=== PATIENT | female | born 1985 | race African-American/Black ===

== ENCOUNTER 2018-05-12 10:49 | Emergency (ER) | payer OTHER ==
[2018-05-12 11:02] VITALS: BP 105/57; PULSE 72; TEMP 98.9; BMI 26.2
--- NOTE | 2018-05-12 11:11 | PDOC ---
History of Present Illness - General Chief Complaint: Cold Symptoms Stated Complaint: COUGHING Time Seen by Provider: 05/12/18 10:55 History Source: Patient Exam Limitations: No Limitations - History of Present Illness Initial Comments: 05/12/18 11:02 Mom states has acute onset of body aches, chills, chest congestion and feels feverish. Daughter and son both diagnosed with influenza a past 2 days. Timing/Duration: reports: just prior to arrival, getting worse Severity: reports: mild, moderate Associated Symptoms: reports: cough, fever/chills, nasal congestion, sore throat Past History - Travel Traveled outside of the country in the last 30 days: No Close contact w/someone who was outside of country & ill: No - Past Medical History Allergies/Adverse Reactions: Allergies Allergy/AdvReac Type Severity Reaction Status Date / Time No Known Allergies Allergy Verified 05/12/18 10:54 Home Medications: Ambulatory Orders Amoxicillin 500mg Capsule - 1 cap PO ASDIR 08/26/13 Oxycodone HCl/Acetaminophen [Percocet 5-325 mg Tablet -] 1 - 2 tab PO Q4H PRN # 20 tablet 08/26/13 Oseltamivir Phosphate [Tamiflu -] 75 mg PO BID #10 capsule 05/12/18 COPD: No - Suicide/Smoking/Psychosocial Hx Smoking History: Never smoked Hx Alcohol Use: No Drug/Substance Use Hx: No Review of Systems - Review of Systems Able to Perform ROS?: Yes Is the patient limited Persian proficient: Yes Constitutional: Yes: Symptoms Reported, See HPI, Chills, Fever, Loss of Appetite , Malaise HEENTM: Yes: Symptoms Reported, See HPI, Nose Congestion, Difficulty Swallowing Respiratory: Yes: Symptoms reported, See HPI, Cough Musculoskeletal: Yes: Symptoms Reported, See HPI, Muscle Pain All Other Systems: Reviewed and Negative *Physical Exam - Vital Signs Last Vital Signs Temp Pulse Resp BP Pulse Ox 98.9 F 72 18 105/57 L 99 05/12/18 10:54 05/12/18 10:54 05/12/18 10:54 05/12/18 10:54 05/12/18 10:54 - Physical Exam Comments: 05/12/18 11:16 GENERAL: [ The pateint is awake, alert, and appropriately interactive.] EYES: [The pupils are equal, round, and reactive to light, with clear, conjunctiva.but glassy] NOSE: [The nose with clear drainage EARS: [The ear canals and tympanic membranes are congested but landmarks easily visualed ] THROAT: [The oropharynx is clear with erythema, no exudates. The mucous membranes are moist.] NECK: [The neck is supple with mildly tender adenopathy, no menigemous] CHEST: [The lungs are coarse but clear without crackles, or wheezes.] HEART: [Heart is regular rhythm, with normal S1 and S2, no murmurs.] ABDOMEN: [The abdomen is soft and nontender with normal bowel sounds. There is no organomegaly and no mass. There is no guarding or rebound.] EXTREMITIES: [Extremities are normal.] NEURO: [Behavior is normal for age.cranky but easily, Tone is normal.] SKIN: [Skin is unremarkable without rash or swelling. There is no bruising, and there are no other signs of injury.] General Appearance: Yes: Nourished, Appropriately Dressed, Apparent Distress HEENT: positive: TMs Normal Moderate Sedation - Procedure Monitoring Vital Signs: Procedure Monitoring Vital Signs Temperature 98.9 F 05/12/18 10:54 Pulse Rate 72 05/12/18 10:54 Respiratory Rate 18 05/12/18 10:54 Blood Pressure 105/57 L 05/12/18 10:54 O2 Sat by Pulse Oximetry (%) 99 05/12/18 10:54 Progress Note - Progress Note Progress Note: iNFLUENA *DC/Admit/Observation/Transfer Diagnosis at time of Disposition: Influenzal acute upper respiratory infection - Discharge Dispostion Disposition: HOME Condition at time of disposition: Stable Decision to Admit order: No - Referrals - Patient Instructions Printed Discharge Instructions: DI for Viral Upper Respiratory Infection -- Adult Additional Instructions: Rest, drink lots of fluids: Teas, water, soups, Pedialyte Saltwater gargles Steamy showers/seem to face break up mucus Old-fashioned treatments help! Avoid contact with others until fevers and cough resolved as this is very contagious Lots of handwashing and good hygiene Continue [id number] medications for symptomatic relief Tylenol or Motrin for fever and pain Take all of Tamiflu as directed: 1 tab every 12 hours for 5 days Followup with private physician in one to 2 days as needed or if worsening Return to emergency department for worsened symptoms, fevers, dehydration Influenza takes between 5 and 7 days for resolution To not participate in any activity, work, or school until fevers and cough are gone for at least one day - Post Discharge Activity Forms/Work/School Notes: Back to Work
== END 2018-05-12 11:29 | disposition home or self-care (01) ==
LOC: JER 10:49 → JERFT 10:49
DX: J11.1 Influenza due to unidentified influenza virus with other respiratory manifestations (principal)
CPT/HCPCS: 99281-25

== ENCOUNTER 2018-10-24 15:47 | Emergency (ER) | payer OTHER ==
[2018-10-24 16:00] VITALS: TEMP 99.4; BMI 28.3
--- NOTE | 2018-10-24 16:02 | PDOC ---
Rapid Medical Evaluation Chief Complaint: Chest Pain Time Seen by Provider: 10/24/18 15:57 Medical Evaluation: Allergies Allergy/AdvReac Type Severity Reaction Status Date / Time No Known Allergies Allergy Verified 05/12/18 10:54 10/24/18 15:58 I have performed a brief in-person evaluation of this patient. The patient presents with a chief complaint of:chest pain, possible worse w/ exertion x several months. C/o b/l leg swelling now. No w/u in past. Pt s/p liposuction 07/15 and states sxs started after that Pertinent physical exam findings:well brigitte and stable I have ordered the following:ekg/labs/ua The patient will proceed to the ED for further evaluation. 10/24/18 16:00 Discharge Disposition - Diagnosis Leg swelling Chest pain Qualifiers: Chest pain type: unspecified Qualified Code(s): R07.9 - Chest pain, unspecified - Referrals - Patient Instructions - Post Discharge Activity
--- NOTE | 2018-10-24 16:31 | PDOC ---
History of Present Illness - General Chief Complaint: Chest Pain Stated Complaint: CHEST PAIN Time Seen by Provider: 10/24/18 15:57 Past History - Past Medical History Allergies/Adverse Reactions: Allergies Allergy/AdvReac Type Severity Reaction Status Date / Time No Known Allergies Allergy Verified 10/24/18 16:01 Home Medications: Ambulatory Orders Amoxicillin 500mg Capsule - 1 cap PO ASDIR 08/26/13 Oxycodone HCl/Acetaminophen [Percocet 5-325 mg Tablet -] 1 - 2 tab PO Q4H PRN # 20 tablet 08/26/13 Oseltamivir Phosphate [Tamiflu -] 75 mg PO BID #10 capsule 05/12/18 COPD: No - Suicide/Smoking/Psychosocial Hx Smoking History: Never smoked Hx Alcohol Use: No Drug/Substance Use Hx: No *Physical Exam - Vital Signs Last Vital Signs Temp Pulse Resp BP Pulse Ox 99.4 F 67 18 106/70 99 10/24/18 15:57 10/24/18 15:57 10/24/18 15:57 10/24/18 15:57 10/24/18 15:57 Heart Score/ECG Review - History History: Slightly suspicious - Electrocardiogram EKG: Normal - Age Age: </= 45 - Risk Factors Based on the list above the patient has:: No risk factors known - Troponin Troponin: </= normal limit - Score Heart Score - Total: 0 ED Treatment Course - LABORATORY CBC & Chemistry Diagram: 10/24/18 16:32 10/24/18 16:32 Medical Decision Making - Medical Decision Making 33yo F with PMH of liposuction on 07/04/18 presenting with chest pain x 3 months. Patient states she has had intermittent chest pain, rated 7/10 described as "achey" and located midsternally. The pain is pleuritic but non-palpable, and will last a couple minutes and going away on its own. Sometimes it occurs with activity, but sometimes it does not. She most recently felt the pain last night and also during ED intake. Not feeling chest pain currently. No associated nausea, vomiting, or diaphoresis. Feels somewhat short of breath upon exertion; she used to be able to walk five flights of stairs without issue but now cannot without feeling short of breath. Patient has noticed swelling in her feet, but not currently. Denies personal or family history of SC. No hemoptysis, no surgical history in the last four weeks, no recent immobilization, no hormone use, no history of DVT or PE. No fevers or abdominal pain. PCP: none ROS: Constitutional: no fever, no chills HEENT: no throat pain, no dysphagia Cardiovascular: +chest pain, no palpitations Respiratory: no cough, +dyspnea on exertion Gastrointestinal: no abdominal pain, no nausea Genitourinary: no dysuria, no hematuria Musculoskeletal: no myalgia, no arthralgia Skin: no rash, no itching Neurologic: no headache, no weakness PE: General: Awake, alert, and fully oriented, in no acute distress Head: No signs of trauma Eyes: EOMI, sclera anicteric ENT: Moist mucus membranes Neck: Normal ROM, supple Lungs: Lungs clear, Normal breath sounds Cardio: Regular rhythm, S1 and S2 present Abdomen: Soft, nontender Extremities: Normal range of motion, Distal pulses present, No leg swelling SKIN: Warm, Dry, normal turgor Neurologic: Cranial nerves II through XII grossly intact. Normal speech ED Courses/MDM: DDX including but not limited to ACS, PE, PNA, MSK, anemia, metabolic derangement Labs, EKG, CXR, Urine Patient is PERC negative; low suspicion for PE 10/24/18 16:31 CBC WBC 5.1 K/mm3 (4.0-10.0) 10/24/18 16:32 RBC 4.69 M/mm3 (3.60-5.2) 10/24/18 16:32 Hgb 13.2 GM/dL (10.7-15.3) 10/24/18 16:32 Hct 40.9 % (32.4-45.2) 10/24/18 16:32 MCV 87.3 fl (80-96) 10/24/18 16:32 MCH 28.2 pg (25.7-33.7) 10/24/18 16:32 MCHC 32.2 g/dl (32.0-36.0) 10/24/18 16:32 RDW 14.0 % (11.6-15.6) 10/24/18 16:32 Plt Count 275 K/MM3 (134-434) 10/24/18 16:32 MPV 8.5 fl (7.5-11.1) 10/24/18 16:32 Absolute Neuts (auto) 2.2 K/mm3 (1.5-8.0) 10/24/18 16:32 Neutrophils % 43.9 % (42.8-82.8) 10/24/18 16:32 Lymphocytes % 48.0 % (8-40) H 10/24/18 16:32 Monocytes % 6.8 % (3.8-10.2) 10/24/18 16:32 Eosinophils % 0.6 % (0-4.5) 10/24/18 16:32 Basophils % 0.7 % (0-2.0) 10/24/18 16:32 Nucleated RBC % 0 % (0-0) 10/24/18 16:32 No leukocytosis CMP Sodium 140 mmol/L (136-145) 10/24/18 16:32 Potassium 3.8 mmol/L (3.5-5.1) 10/24/18 16:32 Chloride 106 mmol/L (98-107) 10/24/18 16:32 Carbon Dioxide 27 mmol/L (21-32) 10/24/18 16:32 Anion Gap 7 MMOL/L (8-16) L 10/24/18 16:32 BUN 12.1 mg/dL (7-18) 10/24/18 16:32 Creatinine 0.9 mg/dL (0.55-1.3) 10/24/18 16:32 Est GFR (CKD-EPI)AfAm 98.75 10/24/18 16:32 Est GFR (CKD-EPI)NonAf 85.20 10/24/18 16:32 Random Glucose 90 mg/dL (74-106) 10/24/18 16:32 Calcium 9.2 mg/dL (8.5-10.1) 10/24/18 16:32 Total Bilirubin 0.4 mg/dL (0.2-1) 10/24/18 16:32 AST 14 U/L (15-37) L 10/24/18 16:32 ALT 24 U/L (13-61) 10/24/18 16:32 Alkaline Phosphatase 83 U/L (45-117) 10/24/18 16:32 Troponin I < 0.02 ng/ml (0.00-0.05) 10/24/18 16:32 Total Protein 8.4 g/dl (6.4-8.2) H 10/24/18 16:32 Albumin 4.0 g/dl (3.4-5.0) 10/24/18 16:32 Electrolytes unremarkable Tpn negative HEART score is 0 Pending CXR Patient without chest pain or acute complaints at this time. 10/24/18 18:35 Plan for second tpn Likely toradol injection Considering sending naprosyn to pharmacy for musculoskeletal chest pain 10/24/18 18:55 CXR without acute pathology, my impression Patient signed out to Dr. Saleem and night team 10/24/18 19:32 *DC/Admit/Observation/Transfer Diagnosis at time of Disposition: Leg swelling Chest pain Qualifiers: Chest pain type: unspecified Qualified Code(s): R07.9 - Chest pain, unspecified - Discharge Dispostion Disposition: HOME Condition at time of disposition: Stable - Referrals Referrals: [facility] [place] [facility] [place] [Provider Group] - Patient Instructions Printed Discharge Instructions: DI for Atypical Chest Pain Additional Instructions: You came into the ED for chest pain and shortness of breath. We performed blood work, an EKG, and an Xray which were within normal limits. Prescription sent to your pharmacy. Take as instructed. Follow-up with a primary care doctor this week to discuss this ED visit and to further evaluate your chest pain. You have been referred to the [facility]. Call and make an appointment at the number provided. Call for emergency medicine services or go to the emergency room right away if you have symptoms of a heart attack, including: Chest pain, which may feel like a crushing weight A sense of fullness, squeezing, or pressure in the chest Rapid, irregular heartbeat Pain, tingling or numbness in the left shoulder and arm, the neck or jaw, or the right arm Sweating Nausea or vomiting Lightheadedness, weakness, or fainting Shortness of breath If you think you have an emergency, call for medical help right away. - Post Discharge Activity Forms/Work/School Notes: Back to Work
[2018-10-24 16:57] LABS: BASO % 0.7 % (0-2.0); EOS % 0.6 % (0-4.5); HEMATOCRIT 40.9 % (32.4-45.2); HEMOGLOBIN 13.2 GM/dL (10.7-15.3); MCH 28.2 pg (25.7-33.7); MCHC 32.2 g/dl (32.0-36.0); MEAN CELL VOLUME 87.3 fl (80-96); MEAN PLT VOLUME 8.5 fl (7.5-11.1); MONO % 6.8 % (3.8-10.2); NEUT % 43.9 % (42.8-82.8); PLATELET COUNT 275 K/MM3 (134-434); RBC 4.69 M/mm3 (3.60-5.2); WHITE BLOOD COUNT 5.1 K/mm3 (4.0-10.0)
[2018-10-24 17:18] LABS: URINE APPEARANCE CLOUDY; URINE BILIRUBIN NEGATIVE (NEGATIVE); URINE COLOR YELLOW; URINE GLUCOSE (UA) NEGATIVE (NEGATIVE); URINE KETONE NEGATIVE (NEGATIVE); URINE LEUK ESTERASE NEGATIVE (NEGATIVE); URINE NITRITE NEGATIVE (NEGATIVE); URINE PROTEIN NEGATIVE (NEGATIVE)
[2018-10-24 17:23] LABS: ALK PHOS 83 U/L (45-117); ANION GAP 7 MMOL/L (8-16); BILIRUBIN,TOTAL 0.4 mg/dL (0.2-1); BLOOD UREA NITROGEN 12.1 mg/dL (7-18); CALCIUM 9.2 mg/dL (8.5-10.1); CHLORIDE 106 mmol/L (98-107); CO2 27 mmol/L (21-32); CREATININE 0.9 mg/dL (0.55-1.3); GLUCOSE,RANDOM 90 mg/dL (74-106); POTASSIUM 3.8 mmol/L (3.5-5.1); SGOT/AST 14 U/L (15-37); SGPT/ALT 24 U/L (13-61); SODIUM 140 mmol/L (136-145); TOT PROT 8.4 g/dl (6.4-8.2)
--- NOTE | 2018-10-24 19:37 | PDOC ---
Documentation entered by Naomi Savage SCRIBE, acting as scribe for Lionel Hicks MD. Lionel Hicks MD: This documentation has been prepared by the Hussein abel Xhesika, SCRIBE, under my direction and personally reviewed by me in its entirety. I confirm that the documentation accurately reflects all work, treatment, procedures, and medical decision making performed by me. Attending Attestation - Resident Resident Name: Maude Quintero - ED Attending Attestation I have performed the following: I have examined & evaluated the patient, The case was reviewed & discussed with the resident, I agree w/resident's findings & plan, Exceptions are as noted - HPI HPI: 10/24/18 18:52 The patient is a 33 year old female with a significant PMH of liposuction () who presents to the emergency department with 3 months of chest pain. Patient describes her chest pain as 7/10, midsternal, pleuritic, intermittent, achy, lasting a couple of minutes, worsened with exertion and activity. Patient notes she had liposuction (07/15) and states her symptoms began shortly after that. Patient denies any family cardiac history. Patient denies sick contact or recent travels. Denies drug or tobacco use. Denies associated diaphoresis, dizziness, headache, focal weakness/numbness, SOB, LE edema, . Denies fever, chills, cough, diarrhea and constipation. Denies dysuria, frequency, urgency and hematuria. Allergies: NKDA - Physicial Exam PE: 10/24/18 18:54 GENERAL: Awake, alert, and fully oriented, in no acute distress HEAD: No signs of trauma EYES: PERRLA, EOMI, sclera anicteric, conjunctiva clear ENT: Auricles normal inspection, hearing grossly normal, nares patent, oropharynx clear without exudates. Moist mucosa NECK: Normal ROM, supple, no lymphadenopathy, JVD, or masses LUNGS: Breath sounds equal, clear to auscultation bilaterally. No wheezes, and no crackles HEART: Regular rate and rhythm, normal S1 and S2, no murmurs, rubs or gallops. Pain reproducible with palpation at L costochondral joints and also reproducible by pushing chest out. ABDOMEN: Soft, nontender, normoactive bowel sounds. No guarding, no rebound. No masses EXTREMITIES: Normal range of motion, no edema. No clubbing or cyanosis. No cords , erythema, or tenderness BACK: No midline spinal tenderness in cervical/thoracic/lumbar region NEUROLOGICAL: Normal speech, cranial nerves intact, 5/5 strength in all 4 extremities, normal sensation to light touch in all 4 extremities, normal cerebellar exam, normal gait, normal reflexes and tone SKIN: Warm, Dry, normal turgor, no rashes or lesions noted. - Medical Decision Making 10/24/18 19:31 33yo F with no sig PMH presents to the ED intermittent CP for 3 months Vitals wnl Exam with reproducible CP, likely MSK in nature Pt pERCS out HS is 1 Plan for trop x2, basic labs, XR If negative, will treat with toradol, likely DC Heart Score/ECG Review - History History: Slightly suspicious - Electrocardiogram EKG: Non specific repolarization disturbance - Age Age: </= 45 - Risk Factors Based on the list above the patient has:: No risk factors known - Troponin Troponin: </= normal limit - Score Heart Score - Total: 1 #1 10/24/18 19:26 EKG read and int by me: NSR, rate 75, normal axis. No JESSICA
[2018-10-24 19:49] VITALS: BP 111/66; PULSE 62
[2018-10-24] MEDS ORDERED: KETOROLAC TROMETHAMINE 30 MG/1 ML VIAL IM ONE (20:15)
--- NOTE | 2018-10-24 20:17 | PDOC ---
*Physical Exam - Vital Signs Last Vital Signs Temp Pulse Resp BP Pulse Ox 99.4 F 62 18 111/66 100 10/24/18 15:57 10/24/18 19:49 10/24/18 15:57 10/24/18 19:49 10/24/18 19:49 ED Treatment Course - LABORATORY CBC & Chemistry Diagram: 10/24/18 16:32 10/24/18 16:32 - ADDITIONAL ORDERS Additional order review: Laboratory Results 10/24/18 10/24/18 10/24/18 19:05 16:42 16:42 Sodium Potassium Chloride Carbon Dioxide Anion Gap BUN Creatinine Est GFR (CKD-EPI)AfAm Est GFR (CKD-EPI)NonAf Random Glucose Calcium Total Bilirubin AST ALT Alkaline Phosphatase Troponin I < 0.02 Total Protein Albumin Urine Color Yellow Urine Appearance Cloudy Urine pH 6.0 Ur Specific [place] 1.026 Urine Protein Negative Urine Glucose (UA) Negative Urine Ketones Negative Urine Blood Negative Urine Nitrite Negative Urine Bilirubin Negative Urine Urobilinogen 1.0 Ur Leukocyte Esterase Negative Urine HCG, Qual Negative 10/24/18 16:32 Sodium 140 Potassium 3.8 Chloride 106 Carbon Dioxide 27 Anion Gap 7 L BUN 12.1 Creatinine 0.9 Est GFR (CKD-EPI)AfAm 98.75 Est GFR (CKD-EPI)NonAf 85.20 Random Glucose 90 Calcium 9.2 Total Bilirubin 0.4 AST 14 L ALT 24 Alkaline Phosphatase 83 Troponin I < 0.02 Total Protein 8.4 H Albumin 4.0 Urine Color Urine Appearance Urine pH Ur Specific [place] Urine Protein Urine Glucose (UA) Urine Ketones Urine Blood Urine Nitrite Urine Bilirubin Urine Urobilinogen Ur Leukocyte Esterase Urine HCG, Qual 10/24/18 16:32 RBC 4.69 MCV 87.3 MCHC 32.2 RDW 14.0 MPV 8.5 Neutrophils % 43.9 Lymphocytes % 48.0 H Monocytes % 6.8 Eosinophils % 0.6 Basophils % 0.7 Medical Decision Making - Medical Decision Making 10/24/18 1900 Patient received on sign out from Dr. Quintero. 10/24/18 20:16 Pt states that pain has improved unless she is pushing on it. Will give toradol 30 mg IM and d/c home with naproxen and f/u PCP. *DC/Admit/Observation/Transfer Diagnosis at time of Disposition: Leg swelling Chest pain Qualifiers: Chest pain type: unspecified Qualified Code(s): R07.9 - Chest pain, unspecified - Discharge Dispostion Disposition: HOME Condition at time of disposition: Stable - Prescriptions Prescriptions: Naproxen 250 mg PO TID PRN #20 tablet PRN Reason: Pain - Referrals Referrals: [facility] [place] [Provider Group] - Patient Instructions Printed Discharge Instructions: DI for Atypical Chest Pain Additional Instructions: You came into the ED for chest pain and shortness of breath. We performed blood work, an EKG, and an Xray which were within normal limits. Prescription sent to your pharmacy. Take as instructed. Follow-up with a primary care doctor this week to discuss this ED visit and to further evaluate your chest pain. You have been referred to the [facility]. Call and make an appointment at the number provided. Call for emergency medicine services or go to the emergency room right away if you have symptoms of a heart attack, including: Chest pain, which may feel like a crushing weight A sense of fullness, squeezing, or pressure in the chest Rapid, irregular heartbeat Pain, tingling or numbness in the left shoulder and arm, the neck or jaw, or the right arm Sweating Nausea or vomiting Lightheadedness, weakness, or fainting Shortness of breath If you think you have an emergency, call for medical help right away. - Post Discharge Activity Forms/Work/School Notes: Back to Work
[2018-10-24] MEDS ORDERED: KETOROLAC TROMETHAMINE 30 MG/1 ML VIAL ONE (20:20)
--- NOTE | 2018-10-25 10:31 | EKG ---
Test Reason : Blood Pressure : / mmHG Vent. Rate : 075 BPM Atrial Rate : 075 BPM P-R Int : 120 ms QRS Dur : 088 ms QT Int : 384 ms P-R-T Axes : 023 040 028 degrees QTc Int : 428 ms SINUS RHYTHM WITH MARKED SINUS ARRHYTHMIA CANNOT RULE OUT ANTERIOR INFARCT , AGE UNDETERMINED ABNORMAL ECG NO PREVIOUS ECGS AVAILABLE Confirmed by CARMINE MALIK MD ([id number]) on 10/25/2018 10:31:17 AM Referred By: Confirmed By:CARMINE MALIK MD
== END 2018-10-24 20:27 | disposition home or self-care (01) ==
LOC: JER 15:47
PROC: 3E0233Z Introduction of Anti-inflammatory into Muscle, Percutaneous Approach (ICD-10-PCS; principal; 2018-10-24)
DX: M79.89 Other specified soft tissue disorders (principal); R07.9 Chest pain, unspecified
CPT/HCPCS: 36415; 71045-TC-FY; 80053; 81003; 84484; 84703; 85025; 93005; 93010; 96372; 99283-25